=== PATIENT | male | born 1970 | race Caucasian/White ===

== ENCOUNTER 2016-11-17 14:48 | Emergency (ER) | payer BC ==
--- NOTE | ~2016-11-17 | CR230 ---
[facility] A Service of [facility] & [facility] RADIOLOGY TEXT RESULTS PATIENT: LAN RICHARDS LOCATION: CFTX : 74 UNIT #: [id number] AGE: [address]: Jenny Christian SEX: M ORDER DR: [id number] [facility] [address] [place], [place] [address] [id number] MR#: [id number] Acc #: [id number] NAME: LAN RICHARDS : 1970 SEX: M STUDY DATE/TIME: 11/17/2016 16:11 UNIT: [facility] ROOM: STUDY DESCRIPTION: CR Shoulder Min 2 View Rt Attending Physician: Jenny Christian Pa-C Ordering Physician: Jenny Christian Pa-C Primary Care Physician: No Primary Care Physician MEDICAL IMAGING REPORT This report is preliminary unless electronic signature is present EXAM Right shoulder, 3 views. HISTORY Shoulder pain after fall yesterday. FINDINGS Three views of the right shoulder demonstrate moderate degenerative changes at the acromioclavicular joint. Shoulder alignment is normal. No fracture or dislocation. IMPRESSION Degenerative changes at the acromioclavicular joint. No acute findings. Dictated by... Musa Coe M.D. THIS IS AN ELECTRONICALLY VERIFIED REPORT Musa Coe M.D. at 11/17/2016 10:51 PM SILVIA/vu TD: 11/17/2016 20:01 JOB #: [id number] MEDICAL IMAGING REPORT Page 1 of 1 COPY
== END 2016-11-17 17:30 | disposition home or self-care (01) ==
LOC: CED 14:48 → CFTX 14:48
DX: S46.911A Strain of unspecified muscle, fascia and tendon at shoulder and upper arm level, right arm, initial encounter (principal); F17.210 Nicotine dependence, cigarettes, uncomplicated; W19.XXXA Unspecified fall, initial encounter; Y92.9 Unspecified place or not applicable
CPT/HCPCS: 73030; 99283